=== PATIENT | female | born 1960 | race Caucasian/White ===

== ENCOUNTER → 2017-10-09 10:12 | Outpatient (CLI) | payer MEDICAID, SELFPAY ==
[2017-10-09 11:39] LABS: Absolute Lymphocyte Count 1.27 X10^3/ul (0.83-4.51); Absolute Neutrophil Count 3.9 X10^3/uL (2.0-7.7); Basophil# 0.03 X10^3/uL; Basophil% 0.5 % (0-1); Eosinophil# 0.16 X10^3/uL; Eosinophils% 2.7 % (0-5); Hematocrit 42.8 % (37-47); Hemoglobin 14.1 g/dl (12.0-15.0); Lymphocyte # 1.27 X10^3/ul (4.0); Lymphocyte % 21.6 % (19-41); Mean Corp Hgb Conc 32.9 g/gl (32-36); Mean Corpuscular Hgb 31.2 pg (27.0-32.0); Mean Corpuscular Volume 94.7 fL (81-99); Monocyte# 0.52 X10^3/uL; Monocyte% 8.8 % (0-10); Neutrophil # 3.89 X10^3/uL (2.7-7.7); Neutrophil % 66.2 % (47-70); Platelet Count 274 K/mm3 (150-450); RBC Distribution Width CV 12.9 % (11.6-14.6); RBC Distribution Width SD 44.5 fl (35.1-43.9); Red Blood Count 4.52 M/mm3 (4.2-5.4); White Blood Count 5.9 K/mm3 (4.4-11.0)
[2017-10-09 11:48] LABS: POSITIVE COUNT NO; POSITIVE DIFFERENTIAL NO; POSITIVE MORPHOLOGY NO
[2017-10-09 12:12] LABS: ALB/GLOB Ratio 0.9 RATIO (0.9-2.4); AST(SGOT) 30 U/L (15-37); Alanine Aminotransfer ALT/SGPT 38 U/L (13-56); Albumin, Serum 3.6 g/dL (3.2-5.0); Alkaline Phosphatase 65 U/L (45-117); Anion Gap 5 (5-15); BUN 13 mg/dL (7-18); BUN/Creat Ratio 16.5 RATIO (10-20); Calcium,Total 8.7 mg/dL (8.5-10.1); Chloride 111 mmol/L (98-107); Creatinine, Serum 0.79 mg/dL (0.55-1.02); EST Glomerular Filtration Rate 79 mL/min (>60); Est Glom Filt Rate - Afr Amer 96 mL/min (>60); Glucose 100 mg/dL (74-106); Iron 120 ug/dL (50-170); Magnesium 2.1 mg/dL (1.6-2.6); Protein, Total 7.6 g/dL (6.4-8.2); Sodium Level 142 mmol/L (136-145); T4 Free Direct 1.23 ng/dL (0.76-1.46); Thyroid Stim Hormone (TSH) 0.27 uIU/mL (0.358-3.74)
[2017-10-09 12:14] LABS: Vitamin B12 705 pg/mL (211-911); Vitamin D,25 Hydroxy 32.1 ng/mL (29.95-100.01)
[2017-10-09 12:21] LABS: Hemoglobin A1c 5.6 % (4.2-6.3)
== END ==
PROVIDERS: Visit Provider Nurse Practitioner
DX: E03.9 Hypothyroidism, unspecified (principal); R53.81 Other malaise; R53.83 Other fatigue; I10 Essential (primary) hypertension; E55.9 Vitamin D deficiency, unspecified; R87.619 Unspecified abnormal cytological findings in specimens from cervix uteri; Z86.39 Personal history of other endocrine, nutritional and metabolic disease; Z86.2 Personal history of diseases of the blood and blood-forming organs and certain disorders involving the immune mechanism
CPT/HCPCS: 36415; 80053; 82306; 82607; 83036; 83540; 83735; 84439; 84443; 85025

== ENCOUNTER → 2017-11-30 14:36 | Outpatient (CLI) | payer MEDICAID, SELFPAY ==
[2017-11-30 14:42] LABS: Mucous, Urine 0 SEEN /hpf (<or=2+); Red Blood Cells-Urine 0 SEEN /hpf (0-5); Squamous Epithelial Cells - UA 0 SEEN /hpf (5-10)
[2017-11-30 14:47] LABS: Color, Urine Yellow (Yellow); Glucose, Dipstick Normal (Normal); Ketone-Dipstick Negative (Negative); Leukocyte Esterase-Dipstick 500 /ul (Negative); Nitrite-Dipstick Negative (Negative); Occult Blood-Urine 25 /ul (Negative); Protein-Dipstick 15 mg/dl (Negative); Urine Bilirubin Dipstick Negative (Negative); Urine Clarity Clear (Clear); Urine Urobilinogen Normal (Normal)
[2017-11-30 15:02] LABS: Bacteria 1+ /hpf (None Seen); White Blood Cells >100 SEEN /hpf (0-5)
== END ==
PROVIDERS: Physician Assistant; Visit Provider Physician Assistant
DX: R35.0 Frequency of micturition (principal)
CPT/HCPCS: 81001; 87077; 87086; 87088; 87186

== ENCOUNTER → 2018-01-06 13:43 | Outpatient (CLI) | payer OTHER, SELFPAY ==
[2018-01-06 15:10] LABS: Free T3 2.6 pg/mL (2.18-3.98); T4 Free Direct 1.01 ng/dL (0.76-1.46); Thyroid Stim Hormone (TSH) 1.52 uIU/mL (0.358-3.74)
== END ==
PROVIDERS: Referring Provider Nurse Practitioner; Visit Provider Nurse Practitioner
DX: E03.9 Hypothyroidism, unspecified (principal)
CPT/HCPCS: 84439; 84443; 84481

== ENCOUNTER → 2018-10-01 14:47 | Outpatient (CLI) | payer OTHER, SELFPAY ==
[2018-10-01 13:56] VITALS: BMI 44.8
[2018-10-01 16:05] LABS: Absolute Lymphocyte Count 1.44 X10^3/ul (0.83-4.51); Absolute Neutrophil Count 4.8 X10^3/uL (2.0-7.7); Basophil# 0.05 X10^3/uL; Basophil% 0.7 % (0-1); Eosinophil# 0.18 X10^3/uL; Eosinophils% 2.5 % (0-5); Hematocrit 41.2 % (37-47); Hemoglobin 14.2 g/dl (12.0-15.0); Lymphocyte # 1.44 X10^3/ul (4.0); Lymphocyte % 20.2 % (19-41); Mean Corp Hgb Conc 34.5 g/gl (32-36); Mean Corpuscular Hgb 31.5 pg (27.0-32.0); Mean Corpuscular Volume 91.4 fL (81-99); Mean Platelet Vol. 10.3 fl (6.2-12.0); Monocyte# 0.61 X10^3/uL; Monocyte% 8.6 % (0-10); Neutrophil # 4.84 X10^3/uL (2.7-7.7); Neutrophil % 67.9 % (47-70); Platelet Count 255 K/mm3 (150-450); RBC Distribution Width CV 12.9 % (11.6-14.6); RBC Distribution Width SD 42.6 fl (35.1-43.9); Red Blood Count 4.51 M/mm3 (4.2-5.4); White Blood Count 7.1 K/mm3 (4.4-11.0)
[2018-10-01 16:10] LABS: POSITIVE COUNT NO; POSITIVE DIFFERENTIAL NO; POSITIVE MORPHOLOGY NO
[2018-10-01 16:31] LABS: AST(SGOT) 21 U/L (15-37); Alanine Aminotransfer ALT/SGPT 34 U/L (13-56); Albumin, Serum 3.8 g/dL (3.2-5.0); Alkaline Phosphatase 71 U/L (45-117); Anion Gap 9 (5-15); BUN 15 mg/dL (7-18); Chloride 109 mmol/L (98-107); Cholesterol 183 mg/dL (200); Creatinine, Serum 0.79 mg/dL (0.55-1.02); EST Glomerular Filtration Rate 79 mL/min (>60); Est Glom Filt Rate - Afr Amer 96 mL/min (>60); Globulin 3.7 g/dL (2.2-4.2); Glucose 80 mg/dL (74-106); Hemoglobin A1c 5.5 % (4.2-6.3); High Density Lipoprotein 51 mg/dL; Potassium 3.6 mmol/L (3.5-5.1); Protein, Total 7.5 g/dL (6.4-8.2); Sodium Level 143 mmol/L (136-145); Thyroid Stim Hormone (TSH) 1.65 uIU/mL (0.358-3.74); Triglycerides 115 mg/dL; Very Low Density Lipoprotein 23 mg/dL (5-40)
== END ==
PROVIDERS: PCP Internal Medicine; Referring Provider Internal Medicine; Visit Provider Internal Medicine
DX: E03.9 Hypothyroidism, unspecified (principal); D64.9 Anemia, unspecified; E66.01 Morbid (severe) obesity due to excess calories; Z68.41 Body mass index [BMI] 40.0-44.9, adult
CPT/HCPCS: 36415; 80053; 80061; 83036; 84443; 85025

== ENCOUNTER → 2019-01-26 13:00 | Outpatient (CLI) | payer OTHER, SELFPAY ==
[2019-01-26 13:40] VITALS: BMI 44.2
[2019-01-27 11:21] LABS: Bacteria 0 SEEN /hpf (None Seen); Mucous, Urine 0 SEEN /hpf (<or=2+); Red Blood Cells-Urine 0 SEEN /hpf (0-5)
[2019-01-27 14:36] LABS: Color, Urine Yellow (Yellow); Glucose, Dipstick Normal (Normal); Ketone-Dipstick Negative (Negative); Leukocyte Esterase-Dipstick 500 /ul (Negative); Nitrite-Dipstick Negative (Negative); Occult Blood-Urine Negative /ul (Negative); Protein-Dipstick Negative (Negative); Specific Gravity, Urine 1.015 (1.002-1.030); Urine Bilirubin Dipstick Negative (Negative); Urine Clarity Sl. Cloudy (Clear); Urine Urobilinogen Normal (Normal)
[2019-01-27 14:45] LABS: Squamous Epithelial Cells - UA 0-5 SEEN /hpf (5-10); White Blood Cells 5-10 SEEN /hpf (0-5)
== END ==
PROVIDERS: PCP Internal Medicine; Visit Provider Internal Medicine
DX: N39.0 Urinary tract infection, site not specified (principal)
CPT/HCPCS: 81001; 87086; 87088

== ENCOUNTER → 2019-03-11 13:59 | Outpatient (CLI) | payer OTHER, SELFPAY ==
[2019-03-11 13:13] VITALS: BMI 43.9
[2019-03-11 16:31] LABS: Ferritin 159 ng/mL (8-252); Iron 126 ug/dL (50-170); Iron Binding Capacity,Total 331 ug/dL (250-450); Thyroid Stim Hormone (TSH) 0.79 uIU/mL (0.358-3.74)
[2019-03-15 20:20] LABS: Transferrin 275 mg/dL (200-370)
== END ==
PROVIDERS: Family Provider Internal Medicine; PCP Internal Medicine; Referring Provider Internal Medicine; Visit Provider Internal Medicine
DX: E83.110 Hereditary hemochromatosis (principal); E03.9 Hypothyroidism, unspecified
CPT/HCPCS: 36415; 82728; 83540; 83550; 84443; 84466

== ENCOUNTER → 2019-03-26 12:32 | Outpatient (CLI) | payer OTHER, SELFPAY ==
[2019-03-26 11:14] VITALS: BMI 43.9
[2019-03-26 12:44] LABS: Bacteria 0 SEEN /hpf (None Seen); Mucous, Urine 0 SEEN /hpf (<or=2+); Red Blood Cells-Urine 0 SEEN /hpf (0-5)
[2019-03-26 13:12] LABS: Color, Urine Yellow (Yellow); Glucose, Dipstick Normal (Normal); Ketone-Dipstick Negative (Negative); Leukocyte Esterase-Dipstick 25 /ul (Negative); Nitrite-Dipstick Negative (Negative); Occult Blood-Urine Negative /ul (Negative); Protein-Dipstick Negative (Negative); Specific Gravity, Urine 1.015 (1.002-1.030); Urine Bilirubin Dipstick Negative (Negative); Urine Clarity Clear (Clear); Urine Urobilinogen Normal (Normal)
[2019-03-26 13:54] LABS: Squamous Epithelial Cells - UA 0-5 SEEN /hpf (5-10); White Blood Cells 0-5 SEEN /hpf (0-5)
== END ==
PROVIDERS: Family Provider Internal Medicine; PCP Internal Medicine; Referring Provider Internal Medicine; Visit Provider Internal Medicine
DX: N39.0 Urinary tract infection, site not specified (principal)
CPT/HCPCS: 81001; 87086; 87088

== ENCOUNTER → 2019-04-30 10:44 | Outpatient (CLI) | payer OTHER, SELFPAY ==
[2019-04-29 16:21] VITALS: BMI 43.9
[2019-04-30 11:58] LABS: Anion Gap 3 (5-15); BUN 14 mg/dL (7-18); BUN/Creat Ratio 16.1 RATIO (10-20); Calcium,Total 9.3 mg/dL (8.5-10.1); Chloride 111 mmol/L (98-107); Creatinine, Serum 0.87 mg/dL (0.55-1.02); EST Glomerular Filtration Rate 71 mL/min (>60); Est Glom Filt Rate - Afr Amer 86 mL/min (>60); Glucose 93 mg/dL (74-106); Sodium Level 143 mmol/L (136-145)
[2019-04-30 12:02] LABS: Vitamin D,25 Hydroxy 23.1 ng/mL (29.95-100.01)
== END ==
LOC: LAB 10:46
PROVIDERS: PCP Internal Medicine; Referring Provider Internal Medicine; Visit Provider Internal Medicine
DX: I10 Essential (primary) hypertension (principal); E55.9 Vitamin D deficiency, unspecified
CPT/HCPCS: 36415; 80048; 82306

== ENCOUNTER → 2019-05-10 | Outpatient (CLI) | payer OTHER, SELFPAY ==
[2019-05-10 09:55] VITALS: BMI 43.9
[2019-05-13 20:52] LABS: HPV Reflexed? NOT INDICATED
== END | disposition home or self-care (01) ==
LOC: LABSPEC 17:04
PROVIDERS: PCP Internal Medicine; Referring Provider Obstetrics & Gynecology; Visit Provider Obstetrics & Gynecology
DX: Z12.4 Encounter for screening for malignant neoplasm of cervix (principal)
CPT/HCPCS: 88175; G0145

== ENCOUNTER → 2019-05-11 13:16 | Outpatient (CLI) | payer OTHER, SELFPAY ==
[2019-01-26 13:40] VITALS: BMI 44.2
[2019-05-10 09:55] VITALS: BMI 43.9
--- NOTE | 2019-05-11 13:17 | BI_ITS ---
MAMMOGRAPHY - BILATERAL SCREENING REASON FOR EXAM: Female, 59 years old. Routine annual screening examination. PERTINENT HISTORY: Aunt with breast cancer. TECHNIQUE: Digital bilateral breast ciera (3D mammographic acquisition) in the CC and MLO projections. 2-D mediolateral oblique (MLO) and craniocaudad (CC) views of both breasts were obtained. CAD: Full Field Digital Mammography with Computer Added Detection was performed. COMPARISON: Comparison is made with prior outside examination dated November 24, 2015. FINDINGS: Breast Composition: The breasts are almost entirely fatty. There are no dominant masses or suspicious calcifications. Stable benign-appearing bilateral axillary lymph nodes. No other significant abnormalities are identified. There has been no significant change since the prior study. BI/SCREEN MAMM (CAD) W/CIERA BILAT IMPRESSION: Stable bilateral screening mammogram. Yearly follow-up mammogram recommended. (A) ASSESSMENT CATEGORY: BIRADS Category 2: Benign. A letter regarding these results will be sent to the patient by the facility within 30 days. Approximately 10% of breast cancers are not detected by mammography. A normal mammogram should not delay biopsy of a clinically suspicious abnormality. [id number] Electronically Signed: Sanju Lizama, at 15:32 EST , Service support ,
== END ==
PROVIDERS: PCP Internal Medicine; Referring Provider Internal Medicine; Visit Provider Internal Medicine
DX: Z12.31 Encounter for screening mammogram for malignant neoplasm of breast (principal)
CPT/HCPCS: 77063; 77067

== ENCOUNTER → 2020-01-05 15:10 | Outpatient (CLI) | payer OTHER, SELFPAY ==
[2020-01-05 14:28] VITALS: BMI 43.9
[2020-01-05 15:13] LABS: Mucous, Urine 0 SEEN /hpf (<or=2+); Red Blood Cells-Urine 0 SEEN /hpf (0-5)
[2020-01-05 16:55] LABS: Absolute Lymphocyte Count 1.71 X10^3/uL (0.83-4.51); Absolute Neutrophil Count 5.3 X10^3/uL (2.0-7.7); Basophil# 0.07 X10^3/uL; Basophil% 0.9 % (0-1); Eosinophil# 0.17 X10^3/uL; Eosinophils% 2.2 % (0-5); Hematocrit 43.6 % (37-47); Hemoglobin 14.6 g/dL (12.0-15.0); Lymphocyte # 1.71 X10^3/ul (4.0); Lymphocyte % 21.6 % (19-41); Mean Corp Hgb Conc 33.5 g/dL (32-36); Mean Corpuscular Hgb 31.9 pg (27.0-32.0); Mean Corpuscular Volume 95.2 fL (81-99); Mean Platelet Vol. 10.1 fl (6.2-12.0); Monocyte# 0.59 X10^3/uL; Monocyte% 7.5 % (0-10); NRBC Flagged by Analyzer 0 % (0-5); Neutrophil # 5.33 X10^3/uL (2.7-7.7); Neutrophil % 67.4 % (47-70); Platelet Count 274 K/mm3 (150-450); RBC Distribution Width CV 12.4 % (11.6-14.6); RBC Distribution Width SD 42.9 fl (35.1-43.9); Red Blood Count 4.58 M/mm3 (4.2-5.4); White Blood Count 7.9 K/mm3 (4.4-11.0)
[2020-01-05 17:08] LABS: Color, Urine Yellow (Yellow); Glucose, Dipstick Normal (Normal); Ketone-Dipstick Negative (Negative); Leukocyte Esterase-Dipstick 100 /ul (Negative); Nitrite-Dipstick Negative (Negative); Occult Blood-Urine Negative /ul (Negative); Protein-Dipstick Negative (Negative); Urine Bilirubin Dipstick Negative (Negative); Urine Clarity Clear (Clear); Urine Urobilinogen Normal (Normal)
[2020-01-05 17:13] LABS: Vitamin D,25 Hydroxy 65.7 ng/mL
[2020-01-05 17:16] LABS: Bacteria RARE /hpf (None Seen); Squamous Epithelial Cells - UA 0-5 SEEN /hpf (5-10); White Blood Cells 5-10 SEEN /hpf (0-5)
[2020-01-05 17:26] LABS: AST(SGOT) 50 U/L (15-37); Alanine Aminotransfer ALT/SGPT 59 U/L (13-56); Albumin, Serum 3.8 g/dL (3.2-5.0); Alkaline Phosphatase 68 U/L (45-117); Anion Gap 5 (5-15); BUN 15 mg/dL (7-18); BUN/Creat Ratio 19.1 RATIO (10-20); Calcium,Total 9.2 mg/dL (8.5-10.1); Chloride 105 mmol/L (98-107); Cholesterol 190 mg/dL (200); Creatinine, Serum 0.78 mg/dL (0.55-1.02); EST Glomerular Filtration Rate 79 mL/min (>60); Est Glom Filt Rate - Afr Amer 96 mL/min (>60); Glucose 84 mg/dL (74-106); High Density Lipoprotein 49 mg/dL; Protein, Total 7.8 g/dL (6.4-8.2); Sodium Level 137 mmol/L (136-145); Thyroid Stim Hormone (TSH) 1.62 uIU/mL (0.358-3.74); Triglycerides 181 mg/dL; Very Low Density Lipoprotein 36 mg/dL (5-40)
== END ==
PROVIDERS: PCP Internal Medicine; Referring Provider Internal Medicine; Visit Provider Internal Medicine
DX: I10 Essential (primary) hypertension (principal); K21.9 Gastro-esophageal reflux disease without esophagitis; E03.9 Hypothyroidism, unspecified; R35.0 Frequency of micturition; E55.9 Vitamin D deficiency, unspecified
CPT/HCPCS: 36415; 80053; 80061; 81001; 82306; 84443; 85025; 87086; 87088

== ENCOUNTER → 2021-02-02 11:03 | Outpatient (CLI) | payer OTHER, SELFPAY ==
[2021-02-02 11:59] LABS: Absolute Lymphocyte Count 1.92 X10^3/uL (0.83-4.51); Absolute Neutrophil Count 3.9 X10^3/uL (2.0-7.7); Basophil% 1.5 % (0-1); Hematocrit 43.8 % (37-47); Hemoglobin 14.9 g/dL (12.0-15.0); Lymphocyte # 1.92 X10^3/ul (0.83-4.51); Lymphocyte % 28.6 % (19-41); Mean Corpuscular Hgb 31.8 pg (27.0-32.0); Mean Corpuscular Volume 93.6 fL (81-99); Mean Platelet Vol. 9.9 fl (6.2-12.0); Monocyte# 0.53 X10^3/uL; Monocyte% 7.9 % (0-10); NRBC Flagged by Analyzer 0 % (0-5); Neutrophil # 3.93 X10^3/uL (2.7-7.7); Neutrophil % 58.6 % (47-70); Platelet Count 287 K/mm3 (150-450); RBC Distribution Width CV 12.5 % (11.6-14.6); Red Blood Count 4.68 M/mm3 (4.2-5.4); White Blood Count 6.7 K/mm3 (4.4-11.0)
[2021-02-02 12:22] LABS: Vitamin D,25 Hydroxy 69.9 ng/mL
[2021-02-02 12:37] LABS: ALB/GLOB Ratio 0.8 RATIO (0.9-2.4); AST(SGOT) 48 U/L (15-37); Alanine Aminotransfer ALT/SGPT 58 U/L (13-56); Albumin, Serum 3.4 g/dL (3.2-5.0); Alkaline Phosphatase 78 U/L (45-117); Anion Gap 7 (5-15); BUN 12 mg/dL (7-18); BUN/Creat Ratio 13.9 RATIO (10-20); Calcium,Total 9.2 mg/dL (8.5-10.1); Chloride 109 mmol/L (98-107); Cholesterol 187 mg/dL (200); Creatinine, Serum 0.87 mg/dL (0.55-1.02); EST Glomerular Filtration Rate 71 mL/min (>60); Est Glom Filt Rate - Afr Amer 85 mL/min (>60); Globulin 4.2 g/dL (2.2-4.2); Glucose 113 mg/dL (74-106); High Density Lipoprotein 47 mg/dL; Potassium 4.1 mmol/L (3.5-5.1); Protein, Total 7.6 g/dL (6.4-8.2); Sodium Level 141 mmol/L (136-145); Thyroid Stim Hormone (TSH) 0.94 uIU/mL (0.358-3.74); Triglycerides 139 mg/dL; Very Low Density Lipoprotein 28 mg/dL (5-40)
== END ==
PROVIDERS: PCP Internal Medicine; Referring Provider Internal Medicine; Visit Provider Internal Medicine
DX: I10 Essential (primary) hypertension (principal); E03.9 Hypothyroidism, unspecified; E55.9 Vitamin D deficiency, unspecified; R73.9 Hyperglycemia, unspecified
CPT/HCPCS: 36415; 80053; 80061; 82306; 83036; 84443; 85025

== ENCOUNTER 2021-04-13 15:59 | Outpatient (CLI) | payer OTHER, SELFPAY ==
[2021-04-13 16:01] LABS: Bacteria 0 SEEN /hpf (None Seen); Mucous, Urine 0 SEEN /hpf (<or=2+); Red Blood Cells-Urine 0 SEEN /hpf (0-5)
[2021-04-13 16:53] LABS: Color, Urine Yellow (Yellow); Glucose, Dipstick Normal (Normal); Ketone-Dipstick Negative (Negative); Leukocyte Esterase-Dipstick 100 /ul (Negative); Nitrite-Dipstick Negative (Negative); Occult Blood-Urine Negative /ul (Negative); Protein-Dipstick Negative (Negative); Specific Gravity, Urine 1.025 (1.002-1.030); Urine Bilirubin Dipstick Negative (Negative); Urine Clarity Sl. Cloudy (Clear); Urine Urobilinogen Normal (Normal)
[2021-04-13 17:22] LABS: Squamous Epithelial Cells - UA 0-5 SEEN /hpf (5-10); Transitional Epithelial - Ur 0-5 SEEN /hpf (0-5); White Blood Cells 5-10 SEEN /hpf (0-5)
== END 2021-04-13 23:59 | disposition short-term general hospital (02) ==
LOC: LABSPEC 16:00
PROVIDERS: PCP Internal Medicine; Referring Provider Nurse Practitioner Family; Visit Provider Nurse Practitioner Family
DX: R10.2 Pelvic and perineal pain (principal)
CPT/HCPCS: 81001; 87086; 87088

== ENCOUNTER → 2022-04-19 | Outpatient (CLI) | payer MEDICAID, SELFPAY ==
[2022-04-19 10:06] LABS: Hematocrit 43.5 % (37-47); Hemoglobin 14.8 g/dL (12.0-15.0); Mean Corpuscular Hgb 31.8 pg (27.0-32.0); Mean Corpuscular Volume 93.3 fL (81-99); RBC Distribution Width CV 12.5 % (11.6-14.6); Red Blood Count 4.66 M/mm3 (4.2-5.4); White Blood Count 7.5 K/mm3 (4.4-11.0)
[2022-04-19 10:07] LABS: Absolute Lymphocyte Count 2.01 X10^3/uL (0.83-4.51); Absolute Neutrophil Count 4.6 X10^3/uL (2.0-7.7); Basophil# 0.09 X10^3/uL; Basophil% 1.2 % (0-1); Eosinophil# 0.26 X10^3/uL; Eosinophils% 3.5 % (0-5); Lymphocyte # 2.01 X10^3/ul (0.83-4.51); Lymphocyte % 26.8 % (19-41); Mean Platelet Vol. 9.8 fl (6.2-12.0); Monocyte# 0.53 X10^3/uL; Monocyte% 7.1 % (0-10); NRBC Flagged by Analyzer 0 % (0-5); Neutrophil # 4.58 X10^3/uL (2.7-7.7); Neutrophil % 60.9 % (47-70); Platelet Count 229 K/mm3 (150-450); RBC Distribution Width SD 42.6 fl (35.1-43.9)
[2022-04-19 10:25] LABS: Vitamin D,25 Hydroxy 70.2 ng/mL
[2022-04-19 10:33] LABS: ALB/GLOB Ratio 0.8 RATIO (0.9-2.4); AST(SGOT) 49 U/L (15-37); Alanine Aminotransfer ALT/SGPT 56 U/L (13-56); Albumin, Serum 3.4 g/dL (3.2-5.0); Alkaline Phosphatase 75 U/L (45-117); Anion Gap 7 (5-15); BUN 14 mg/dL (7-18); Calcium,Total 9.7 mg/dL (8.5-10.1); Chloride 105 mmol/L (98-107); Cholesterol 205 mg/dL (200); Creatinine, Serum 0.87 mg/dL (0.55-1.02); EST Glomerular Filtration Rate 70 mL/min (>60); Est Glom Filt Rate - Afr Amer 84 mL/min (>60); Globulin 4.1 g/dL (2.2-4.2); Glucose 152 mg/dL (74-106); High Density Lipoprotein 46 mg/dL; Protein, Total 7.5 g/dL (6.4-8.2); Sodium Level 139 mmol/L (136-145); Triglycerides 168 mg/dL; Very Low Density Lipoprotein 34 mg/dL (5-40)
== END | disposition home or self-care (01) ==
LOC: LAB 09:40
PROVIDERS: PCP Internal Medicine; Referring Provider Physician Assistant; Visit Provider Physician Assistant
DX: I10 Essential (primary) hypertension (principal); E03.9 Hypothyroidism, unspecified; E55.9 Vitamin D deficiency, unspecified; R73.9 Hyperglycemia, unspecified
CPT/HCPCS: 36415; 80053; 80061; 82306; 84443; 85025

== ENCOUNTER → 2022-07-24 | Outpatient (CLI) | payer MEDICAID, SELFPAY ==
--- NOTE | 2022-07-24 14:40 | BI_ITS ---
MAMMOGRAPHY - BILATERAL SCREENING REASON FOR EXAM: Female, 62 years old. Routine annual screening examination. PERTINENT HISTORY: Aunt with breast cancer. TECHNIQUE: Digital bilateral breast ciera (3D mammographic acquisition) in the CC and MLO projections. 2-D mediolateral oblique (MLO) and craniocaudad (CC) views of both breasts were obtained. CAD: Full Field Digital Mammography with Computer Added Detection was performed. COMPARISON: Comparison is made with prior study dated May 11, 2019. FINDINGS: Breast Composition: The breasts are almost entirely fatty. There are no dominant masses or suspicious calcifications. Stable small benign-appearing bilateral axillary lymph nodes. No other significant abnormalities are identified. There has been no significant change since the prior study. BI/SCRN MAMM (CAD)W/CIERA BILAT IMPRESSION: Stable bilateral screening mammogram. Yearly follow-up mammogram recommended. (A) ASSESSMENT CATEGORY: BIRADS Category 2: Benign. A letter regarding these results will be sent to the patient by the facility within 30 days. Approximately 10% of breast cancers are not detected by mammography. A normal mammogram should not delay biopsy of a clinically suspicious abnormality. [id number] Electronically Signed: Sanju Lizama MD at 15:23 EDT ,
[2022-08-01 10:08] LABS: HPV APTIMA, High Risk Negative (Negative)
== END | disposition home or self-care (01) ==
PROVIDERS: PCP Internal Medicine; Referring Provider Nurse Practitioner Women's Health; Visit Provider Nurse Practitioner Women's Health
DX: Z12.31 Encounter for screening mammogram for malignant neoplasm of breast (principal)
CPT/HCPCS: 77063; 77067; 87624; 88175; G0145

== ENCOUNTER → 2023-06-27 | Outpatient (CLI) | payer MEDICAID, SELFPAY ==
[2023-06-27 11:59] LABS: Absolute Lymphocyte Count 1.24 X10^3/uL (0.83-4.51); Basophil# 0.05 X10^3/uL; Basophil% 0.7 % (0-1); Eosinophils% 2.8 % (0-5); Hematocrit 47.8 % (37-47); Hemoglobin 16.2 g/dL (12.0-15.0); Lymphocyte # 1.24 X10^3/ul (0.83-4.51); Lymphocyte % 17.2 % (19-41); Mean Corp Hgb Conc 33.9 g/dL (32-36); Mean Corpuscular Hgb 31.8 pg (27.0-32.0); Mean Corpuscular Volume 93.9 fL (81-99); Monocyte# 0.75 X10^3/uL; Monocyte% 10.4 % (0-10); NRBC Flagged by Analyzer 0 % (0-5); Neutrophil # 4.95 X10^3/uL (2.7-7.7); Neutrophil % 68.6 % (47-70); Platelet Count 272 K/mm3 (150-450); RBC Distribution Width CV 13.1 % (11.6-14.6); RBC Distribution Width SD 45.4 fl (35.1-43.9); Red Blood Count 5.09 M/mm3 (4.2-5.4); White Blood Count 7.2 K/mm3 (4.4-11.0)
[2023-06-27 12:25] LABS: Vitamin D,25 Hydroxy 73.8 ng/mL
[2023-06-27 12:40] LABS: Ferritin 339 ng/mL (8-252); Iron 93 ug/dL (50-170); Iron Binding Capacity,Total 359 ug/dL (250-450); Magnesium 2.3 mg/dL (1.6-2.6)
[2023-06-27 12:53] LABS: ALB/GLOB Ratio 0.8 RATIO (0.9-2.4); AST(SGOT) 36 U/L (15-37); Alanine Aminotransfer ALT/SGPT 41 U/L (13-56); Albumin, Serum 3.6 g/dL (3.2-5.0); Alkaline Phosphatase 80 U/L (45-117); Anion Gap 9 (5-15); BUN 19 mg/dL (7-18); BUN/Creat Ratio 18.6 RATIO (10-20); Calcium,Total 9.3 mg/dL (8.5-10.1); Chloride 110 mmol/L (98-107); Cholesterol 186 mg/dL (200); Creatinine, Serum 1.02 mg/dL (0.55-1.02); EST Glomerular Filtration Rate 58 mL/min (>60); Est Glom Filt Rate - Afr Amer 70 mL/min (>60); Globulin 4.4 g/dL (2.2-4.2); Glucose 136 mg/dL (74-106); High Density Lipoprotein 44 mg/dL; Potassium 3.8 mmol/L (3.5-5.1); Sodium Level 141 mmol/L (136-145); Thyroid Stim Hormone (TSH) 6.23 uIU/mL (0.358-3.74); Triglycerides 141 mg/dL; Very Low Density Lipoprotein 28 mg/dL (5-40)
== END | disposition home or self-care (01) ==
LOC: BIMLAB 11:02
PROVIDERS: PCP Internal Medicine; Referring Provider Nurse Practitioner; Visit Provider Nurse Practitioner
DX: I10 Essential (primary) hypertension (principal); E03.9 Hypothyroidism, unspecified; G25.81 Restless legs syndrome; E55.9 Vitamin D deficiency, unspecified; R73.03 Prediabetes
CPT/HCPCS: 36415; 80053; 80061; 82306; 82728; 83036; 83540; 83550; 83735; 84443; 85025

== ENCOUNTER → 2023-09-09 | Outpatient (CLI) | payer MEDICAID, SELFPAY ==
[2023-09-09 16:32] LABS: Thyroid Stim Hormone (TSH) 0.41 uIU/mL (0.358-3.74)
[2023-09-10 18:23] LABS: Anion Gap 7 (5-15); BUN 13 mg/dL (7-18); BUN/Creat Ratio 19.8 RATIO (10-20); Calcium,Total 9.5 mg/dL (8.5-10.1); Chloride 107 mmol/L (98-107); Creatinine, Serum 0.66 mg/dL (0.55-1.02); EST Glomerular Filtration Rate 96 mL/min (>60); Est Glom Filt Rate - Afr Amer 116 mL/min (>60); Glucose 95 mg/dL (74-106); Sodium Level 140 mmol/L (136-145)
== END | disposition home or self-care (01) ==
LOC: BIMLAB 13:29
PROVIDERS: PCP Internal Medicine; Referring Provider Internal Medicine; Visit Provider Internal Medicine
DX: E03.9 Hypothyroidism, unspecified (principal)
CPT/HCPCS: 36415; 80048; 84443

== ENCOUNTER 2023-11-16 20:10 | Emergency (ER) | payer MEDICAID, SELFPAY ==
[2023-11-16 20:10] VITALS: BP 174/103; PULSE 114; RESP 18; TEMP 36.3; O2SAT 97; BMI 40.8
--- NOTE | 2023-11-16 20:50 | EKG12_ITS ---
Test Reason : HTN Blood Pressure : / mmHG Vent. Rate : 093 BPM Atrial Rate : 093 BPM P-R Int : 118 ms QRS Dur : 080 ms QT Int : 388 ms P-R-T Axes : 000 160 129 degrees QTc Int : 482 ms Suspect arm lead reversal, interpretation assumes no reversal Sinus rhythm with Premature ventricular complexes or Fusion complexes Anterolateral infarct (cited on or before 04-JUN-2012) Abnormal ECG Confirmed by ZACH CAMARA, JOCELINE ([id number]), visual effects editor MARTINA FARR ([id number]) on 11/17/2023 9:47:24 AM Referred By: Confirmed By:JOCELINE SERRANO MD
[2023-11-16] MEDS: 0.9% Normal Saline (1000mL) 1,000 ML 1000 ML IV (20:55)
--- NOTE | 2023-11-16 21:00 | RAD_ITS ---
INDICATION: hypertension EXAMINATION/TECHNIQUE: X-RAY - XR Chest 2 Views COMPARISON: CT abdomen and pelvis 06/02/2008 FINDINGS: LINES/DEVICES: None. LUNGS: No consolidation, edema or effusion. No pneumothorax. MEDIASTINUM AND CARDIOVASCULAR STRUCTURES: Cardiac silhouette not enlarged. Situs inversus corresponding with the earlier CT findings. BONES AND SOFT TISSUES: Unremarkable. RAD/Chest PA and Lateral IMPRESSION: No radiographic evidence of acute cardiopulmonary disease. Situs inversus. Electronically Signed: Enrrique Fernandes MD at 21:24 EDT ,
[2023-11-16 21:16] LABS: Absolute Lymphocyte Count 2.09 X10^3/uL (0.83-4.51); Absolute Neutrophil Count 5.3 X10^3/uL (2.0-7.7); Basophil# 0.07 X10^3/uL; Basophil% 0.8 % (0-1); Eosinophil# 0.23 X10^3/uL; Eosinophils% 2.7 % (0-5); Hematocrit 41.6 % (37-47); Hemoglobin 14.3 g/dL (12.0-15.0); Lymphocyte # 2.09 X10^3/ul (0.83-4.51); Lymphocyte % 24.6 % (19-41); Mean Corp Hgb Conc 34.4 g/dL (32-36); Mean Corpuscular Hgb 31.6 pg (27.0-32.0); Mean Platelet Vol. 10.7 fl (6.2-12.0); Monocyte# 0.77 X10^3/uL; Monocyte% 9.1 % (0-10); NRBC Flagged by Analyzer 0 % (0-5); Neutrophil # 5.29 X10^3/uL (2.7-7.7); Neutrophil % 62.4 % (47-70); Platelet Count 220 K/mm3 (150-450); RBC Distribution Width CV 12.5 % (11.6-14.6); RBC Distribution Width SD 42.5 fl (35.1-43.9); Red Blood Count 4.52 M/mm3 (4.2-5.4); White Blood Count 8.5 K/mm3 (4.4-11.0)
[2023-11-16 21:37] LABS: Anion Gap 6 (5-15); BUN 13 mg/dL (7-18); BUN/Creat Ratio 13.9 RATIO (10-20); Calcium,Total 9.4 mg/dL (8.5-10.1); Chloride 109 mmol/L (98-107); Creatinine, Serum 0.94 mg/dL (0.55-1.02); EST Glomerular Filtration Rate 64 mL/min (>60); Est Glom Filt Rate - Afr Amer 77 mL/min (>60); Estimated Creatinine Clearance 69.98 ml/min; Glucose 189 mg/dL (74-106); Potassium 3.5 mmol/L (3.5-5.1); Sodium Level 143 mmol/L (136-145); Thyroid Stim Hormone (TSH) 2.46 uIU/mL (0.358-3.74)
[2023-11-16 21:45] VITALS: BP 171/89; O2SAT 96
--- NOTE | 2023-11-16 22:10 | EX.ED.DYSGE1 ---
HPI History of Present Illness Chief Complaint: Hypertension Informant: patient Narrative Narrative: Patient is 63-year-old female with history of GERD, borderline type 2 diabetes mellitus, hypothyroid (on Synthroid) and hypertension presenting for flushing of her face and elevated blood pressure. Patient states she ate dinner tonight and afterwards felt that her face was flushed. This triggered check her blood pressure. At 7:30 PM it was 162/84. The highest weight was 174 systolic. Patient was concerned and came to the emergency room for further evaluation. She denies any symptom such as chest pain, shortness of breath, difficulty breathing, leg swelling, headache or vision changes. She notes that her PCP recently increased her Synthroid dose about a month ago and since then she has had some sensation of feeling of her heart is racing at night and sweating a lot. She states her TSH was 0.41 on 09/08. Patient did take her blood pressure medicine today which is enalapril 30 mg as well as HCTZ 12.5 mg. Denies any recent medication changes. She states her normal blood pressure is normally around 120/80. No other complaints or concerns at this time. 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 [facility] Medical History Skin mole Borderline type 2 diabetes mellitus Flu vaccine need Hyperglycemia Vitamin D deficiency Colon cancer screening Puncture wound of left foot excluding toes without complication Hearing problem Seasonal allergies Vitamin deficiency GERD (gastroesophageal reflux disease) Kidney stones Cataracts, bilateral Recurrent UTI Knee pain Anemia Hemorrhoids Hypertension Home Medications ?Medication ?Instructions ?Recorded ?Last Taken ?Type cholecalciferol (vitamin D3) 50 2,000 unit PO DAILY 05/10/19 Unknown History mcg (2,000 unit) tablet loratadine 10 mg tablet (Claritin) 10 mg PO DAILY 07/24/22 Unknown History hydrochlorothiazide 12.5 mg tablet 12.5 mg PO QAM #90 tabs 09/23/23 Unknown Rx levothyroxine 125 mcg tablet 125 mcg PO DAILY #90 TABLETS 09/23/23 Unknown Rx enalapril maleate 10 mg tablet 30 mg PO DAILY 11/16/23 Unknown History Allergy/AdvReac Type Severity Reaction Status Date / Time No Known Allergies Allergy Verified 11/16/23 20:11 Family History Father Heart disease Hypertension Kidney stones Diabetes High cholesterol Mother Hypertension Grandmother Hypothyroid Son Hemochromatosis Surgical History History of repair of retinal tear by laser photocoagulation H/O colonoscopy History of D&C Social History Smoking Status: Never smoker alcohol intake: never substance use type: does not use caffeine: Yes what type of physical activity do you participate in: walking seatbelt use: always do you feel safe at home: Yes additional social history: - [employer] NOW ROS ROS ED Constitutional Constitutional ED: Reports other Details: flushed ; Denies chills or fever(s) Eyes Eyes: Denies blurry vision or change in vision Cardiovascular Cardiovascular: Denies chest pain or palpitations Respiratory/Chest Respiratory/Chest: Denies cough or dyspnea Gastrointestinal Gastrointestinal: Denies abdominal pain, nausea or vomiting Neurologic Neurologic: Denies headache(s) EXAM Physical Exam Const Vital Signs: 11/16/23 20:10 11/16/23 20:20 11/16/23 21:45 Temperature 97.4 F L Temperature Source Temporal Pulse Rate 114 H Respiratory Rate 18 Respiratory Effort Normal Respiratory Pattern Normal Blood Pressure 174/103 H 171/89 H Blood Pressure Mean 126 116 Pulse Ox 97 96 Oxygen Delivery Method Room Air Room Air 11/16/23 22:23 11/16/23 22:27 Temperature 97.8 F Temperature Source Pulse Rate 82 Respiratory Rate 16 Respiratory Effort Respiratory Pattern Blood Pressure 148/79 H 147/68 H Blood Pressure Mean 102 94 Pulse Ox 99 Oxygen Delivery Method Positive well nourished and well developed General Appearance ED: well developed Eyes Eyes Narrative: No exophthalmos Neck supple and no JVD Resp normal respiratory effort and clear to auscultation bilaterally Cardio regular rate, regular rhythm and no murmurs GI normal to inspection, nondistended, normoactive bowel sounds and non-distended Extremity normal to inspection General Extremety ED: Negative for edema General Extremity: Negative for edema Neuro oriented x3 Psych mental status grossly normal Mood & Affect: anxious Skin no rashes or lesions noted and no wounds MDM MDM MDM Narrative Medical decision making narrative: Patient evaluated for elevated blood pressure. Patient is mildly hypertensive the emergency room with blood pressure of 174/103. She is mildly tachycardic upon arrival. Patient is a little anxious. She is not having chest pain or signs of hypertensive emergency (difficulty breathing, signs of flash pulmonary edema, crackles/rales in her lungs as normal neurologic exam). I will check some basic blood work including CBC, BMP and TSH. This is all largely normal. Patient is monitored in the ER and blood pressure does stay bit elevated fluctuating between 160-170 systolic. Heart rate improves in the ER patient is given IV fluids. She did feel like she is little dehydrated did have a little bit of a dry mouth. On repeat evaluation she feels well. Is still hypertensive will be given 1 dose of labetalol. Discussed at this time I do not want to make any medication changes and she can follow-up with her PCP. Instructed to take a blood pressure log. Counseled that she is not having any chest pain, difficulty breathing or severe symptoms such as flash pulmonary edema, neurologic symptoms or other more traumatic process she can just keep a blood pressure log and follow-up with her primary care doctor. She will call tomorrow. I did discuss that if her blood pressure is elevated she could take an extra dose of hydrochlorothiazide she is only on 12.5 mg at this time. Prior to receiving the labetalol patient's blood pressure is now 140 systolic. Will cancel the order and discharge patient home with the above plan. Lab Data Attestation: I reviewed the patient's lab results. Labs: Laboratory Results - last 24 hr 11/16/23 20:45 WBC 8.5 RBC 4.52 Hgb 14.3 Hct 41.6 MCV 92.0 MCH 31.6 MCHC 34.4 RDW Std Deviation 42.5 RDW Coeff of Helen 12.5 Plt Count 220 MPV 10.7 Immature Gran % (Auto) 0.400 Neut % (Auto) 62.4 Lymph % (Auto) 24.6 Fisher % (Auto) 9.1 Eos % (Auto) 2.7 Baso % (Auto) 0.8 Absolute Neuts (auto) 5.3 Absolute Lymphs (auto) 2.09 Nucleated RBC % 0 Sodium 143 Potassium 3.5 Chloride 109 H Carbon Dioxide 28.0 Anion Gap 6 BUN 13 Creatinine 0.94 Estim Creat Clear Calc 69.98 Est GFR (MDRD) Af Amer 77 Est GFR (MDRD) Non-Af 64 BUN/Creatinine Ratio 13.9 Glucose 189 H Calcium 9.4 TSH 2.46 Radiography Diagnostic Testing: Clinical Impression(s) from Imaging Studies Chest X-Ray 11/16/23 21:00 IMPRESSION: No radiographic evidence of acute cardiopulmonary disease. Situs inversus. Electronically Signed: Enrrique Fernandes MD at 21:24 EDT Reading Location ID and State: [facility] / [place] Tel , Service support , Rhythm Strip Rhythm Strip: Sinus Rhythm Rate: 77 Ectopy: None EKG Initial EKG: Attestation: I personally reviewed and interpreted this EKG as follows: Interpretation: Sinus Rhythm Comments: Normal sinus rhythm rate of 77 bpm Right axis deviation Normal intervals Normal ST segments with nonspecific T wave changes Follow-up EKG: Comments: Right sided EKG initially obtained as patient has sinus inverted this. Show suspected limb lead reversal and no change compared to prior EKG on 06/04/2012 Sinus rhythm at a rate of 93 bpm Discharge Plan Triage Chief Complaint: Hypertension ED Provider: Celine Perry Dx/Rx/DC Orders Clinical Impression: Elevated blood pressure reading Instructions: ED Hypertension, Established Prescriptions: No Action cholecalciferol (vitamin D3) 2,000 unit tablet 2,000 unit PO DAILY loratadine [Claritin] 10 mg tablet 10 mg PO DAILY enalapril maleate 10 mg tablet 30 mg PO DAILY hydrochlorothiazide 12.5 mg tablet 12.5 mg PO QAM Qty: 90 1RF levothyroxine 125 mcg tablet 125 mcg PO DAILY Qty: 90 1RF Primary Care Provider: Jigar Tucker Referrals: Jigar Tucker MD [Primary Care Provider] - Activity Restrictions/Additional Instructions: Please keep a blood pressure log. Please follow-up with your primary care doctor. If your blood pressure is above 160 systolic you may take an additional 12.5 mg of her hydrochlorothiazide tablets once a day. Print Language: Uzbek Disposition Disposition: Home, Self Care Discharge Date/Time: 11/16/23 22:28
--- NOTE | 2023-11-16 22:17 | EKG12_ITS ---
Test Reason : HTN Blood Pressure : / mmHG Vent. Rate : 077 BPM Atrial Rate : 000 BPM P-R Int : 000 ms QRS Dur : 086 ms QT Int : 398 ms P-R-T Axes : 000 163 087 degrees QTc Int : 450 ms Sinus rhythm Right axis deviation Nonspecific T wave abnormality Abnormal ECG Assume no lead reversal Confirmed by ZACH CAMARA, JOCELINE ([id number]), news videotape editor MASSIEL FABIAN ([id number]) on 11/17/2023 2:33:43 PM Referred By: TRINI Confirmed By:JOCELINE SERRANO MD
[2023-11-16 22:23] VITALS: BP 148/79
[2023-11-16 22:27] VITALS: BP 147/68; PULSE 82; RESP 16; TEMP 36.6; O2SAT 99
== END 2023-11-16 22:28 | disposition home or self-care (01) ==
PROVIDERS: Emergency Provider Emergency Medicine; PCP Internal Medicine; Visit Provider Emergency Medicine
DX: I10 Essential (primary) hypertension (principal); K21.9 Gastro-esophageal reflux disease without esophagitis; E03.9 Hypothyroidism, unspecified; Z79.890 Hormone replacement therapy; Z79.899 Other long term (current) drug therapy; R23.2 Flushing
CPT/HCPCS: 71046; 80048; 84443; 85025; 93005; 96360; 99283; J7030; A4216

== ENCOUNTER → 2024-02-02 | Outpatient (CLI) | payer MEDICARE, SELFPAY ==
[2024-02-02 12:22] LABS: Hemoglobin 14.5 g/dL (12.0-15.0); Mean Corp Hgb Conc 33.7 g/dL (32-36); Mean Corpuscular Hgb 31.7 pg (27.0-32.0); Mean Corpuscular Volume 94.1 fL (81-99); Mean Platelet Vol. 11.1 fl (6.2-12.0); Platelet Count 233 K/mm3 (150-450); RBC Distribution Width CV 12.6 % (11.6-14.6); RBC Distribution Width SD 43.5 fl (35.1-43.9); Red Blood Count 4.57 M/mm3 (4.2-5.4)
[2024-02-02 12:36] LABS: Anion Gap 4 (5-15); BUN 11 mg/dL (7-18); BUN/Creat Ratio 12.4 RATIO (10-20); Calcium,Total 9.4 mg/dL (8.5-10.1); Chloride 108 mmol/L (98-107); Creatinine, Serum 0.89 mg/dL (0.55-1.02); EST Glomerular Filtration Rate 68 mL/min (>60); Est Glom Filt Rate - Afr Amer 82 mL/min (>60); Glucose 108 mg/dL (74-106); Potassium 3.7 mmol/L (3.5-5.1); Sodium Level 140 mmol/L (136-145)
== END | disposition home or self-care (01) ==
LOC: BIMLAB 11:03
PROVIDERS: Nurse Practitioner; PCP Internal Medicine; Referring Provider Internal Medicine; Visit Provider Internal Medicine
DX: I10 Essential (primary) hypertension (principal)
CPT/HCPCS: 36415; 80048; 84443; 85027

== ENCOUNTER → 2024-06-16 | Outpatient (CLI) | payer MEDICARE, OTHER, SELFPAY ==
[2024-06-16 12:23] LABS: Absolute Lymphocyte Count 1.76 X10^3/uL (0.83-4.51); Basophil# 0.08 X10^3/uL; Basophil% 1.2 % (0-1); Eosinophil# 0.19 X10^3/uL; Eosinophils% 2.9 % (0-5); Hemoglobin 14.4 g/dL (12.0-15.0); Lymphocyte # 1.76 X10^3/ul (0.83-4.51); Mean Corp Hgb Conc 34.3 g/dL (32-36); Mean Corpuscular Hgb 31.6 pg (27.0-32.0); Mean Corpuscular Volume 92.3 fL (81-99); Mean Platelet Vol. 10.2 fl (6.2-12.0); Monocyte# 0.45 X10^3/uL; Monocyte% 6.9 % (0-10); NRBC Flagged by Analyzer 0 % (0-5); Neutrophil # 4.01 X10^3/uL (2.7-7.7); Neutrophil % 61.7 % (47-70); Platelet Count 270 K/mm3 (150-450); RBC Distribution Width CV 12.6 % (11.6-14.6); Red Blood Count 4.55 M/mm3 (4.2-5.4); White Blood Count 6.5 K/mm3 (4.4-11.0)
[2024-06-16 13:07] LABS: ALB/GLOB Ratio 1.2 RATIO (0.9-2.4); AST(SGOT) 48 U/L (<=31); Alanine Aminotransfer ALT/SGPT 50 U/L (<=34); Alkaline Phosphatase 83 U/L (35-104); Anion Gap 11 (5-15); BUN 14 mg/dL (4-19); BUN/Creat Ratio 20.2 RATIO (10-20); Calcium,Total 9.7 mg/dL (7.6-11.0); Carbon Dioxide 23.6 mmol/L (21.0-32.0); Chloride 106 mmol/L (98-108); Cholesterol 167 mg/dL (<=200); Creatinine, Serum 0.68 mg/dL (0.70-1.20); EST Glomerular Filtration Rate 96 (>60); Globulin 3.2 g/dL (2.2-4.2); Glucose 126 mg/dL (70-99); High Density Lipoprotein 45 mg/dL; Low Density Lipoprotein Calc. 97 mg/dL; Potassium 4.3 mmol/L (3.3-5.1); Protein, Total 7.2 g/dL (5.9-8.4); Sodium Level 141 mmol/L (133-145); Total Bilirubin 0.42 mg/dL (0.00-1.30); Triglycerides 130 mg/dL; Very Low Density Lipoprotein 26 mg/dL (5-40); cholesterol:hdl ratio screen 3.75
[2024-06-16 13:42] LABS: Thyroid Stim Hormone (TSH) 0.139 uIU/mL (0.300-4.200); Vitamin D,25 Hydroxy 95.3 ng/mL (30-100)
[2024-06-16 14:18] LABS: Microalbumin,Random Urine < 12.0 mg/L (NO RANGE EST.); Microalbumin:Creatinine Ratio UNABLE TO CALCULATE mg/g CRE
== END | disposition home or self-care (01) ==
LOC: BIMLAB 10:52
PROVIDERS: PCP Internal Medicine; Referring Provider Internal Medicine; Visit Provider Internal Medicine
DX: I10 Essential (primary) hypertension (principal); E55.9 Vitamin D deficiency, unspecified; E03.9 Hypothyroidism, unspecified; R73.03 Prediabetes
CPT/HCPCS: 36415; 80053; 80061; 82043; 82306; 82570; 84443; 85025

== ENCOUNTER → 2024-08-26 | Outpatient (CLI) | payer MEDICARE, OTHER, SELFPAY | END | disposition home or self-care (01) | LOC: BIMLAB 12:30 | PROVIDERS: PCP Internal Medicine; Referring Provider Internal Medicine; Visit Provider Internal Medicine | DX: E03.9 Hypothyroidism, unspecified (principal) | CPT/HCPCS: 36415; 84443 ==

== ENCOUNTER → 2024-09-23 | Outpatient (CLI) | payer MEDICARE, OTHER, SELFPAY ==
[2024-09-23 12:29] LABS: Absolute Lymphocyte Count 1.89 X10^3/uL (0.83-4.51); Absolute Neutrophil Count 4.8 X10^3/uL (2.0-7.7); Basophil# 0.11 X10^3/uL; Basophil% 1.4 % (0-1); Eosinophils% 2.6 % (0-5); Hematocrit 41.9 % (37-47); Hemoglobin 14.2 g/dL (12.0-15.0); Lymphocyte # 1.89 X10^3/ul (0.83-4.51); Lymphocyte % 24.7 % (19-41); Mean Corp Hgb Conc 33.9 g/dL (32-36); Mean Corpuscular Hgb 31.8 pg (27.0-32.0); Mean Corpuscular Volume 93.7 fL (81-99); Mean Platelet Vol. 10.7 fl (6.2-12.0); Monocyte# 0.67 X10^3/uL; Monocyte% 8.7 % (0-10); NRBC Flagged by Analyzer 0 % (0-5); Neutrophil # 4.76 X10^3/uL (2.7-7.7); Neutrophil % 62.2 % (47-70); Platelet Count 236 K/mm3 (150-450); RBC Distribution Width CV 12.7 % (11.6-14.6); RBC Distribution Width SD 43.5 fl (35.1-43.9); Red Blood Count 4.47 M/mm3 (4.2-5.4); White Blood Count 7.7 K/mm3 (4.4-11.0)
[2024-09-23 13:13] LABS: ALB/GLOB Ratio 1.4 RATIO (0.9-2.4); AST(SGOT) 34 U/L (<=31); Alanine Aminotransfer ALT/SGPT 34 U/L (<=34); Albumin, Serum 3.9 g/dL (3.4-4.8); Alkaline Phosphatase 85 U/L (35-104); Anion Gap 11 (5-15); BUN 15 mg/dL (4-19); Calcium,Total 9.4 mg/dL (7.6-11.0); Carbon Dioxide 23.7 mmol/L (21.0-32.0); Chloride 106 mmol/L (98-108); Creatinine, Serum 0.81 mg/dL (0.70-1.20); EST Glomerular Filtration Rate 81 (>60); Globulin 2.9 g/dL (2.2-4.2); Glucose 146 mg/dL (70-99); Potassium 4.4 mmol/L (3.3-5.1); Protein, Total 6.8 g/dL (5.9-8.4); Sodium Level 141 mmol/L (133-145); Total Bilirubin 0.41 mg/dL (0.00-1.30)
== END | disposition home or self-care (01) ==
LOC: BIMLAB 09:26
PROVIDERS: PCP Internal Medicine; Referring Provider Internal Medicine; Visit Provider Internal Medicine
DX: I10 Essential (primary) hypertension (principal)
CPT/HCPCS: 36415; 80053; 85025

== ENCOUNTER 2024-11-30 12:47 | Day surgery (SDC) | payer MEDICARE, OTHER, SELFPAY ==
--- NOTE | 2024-11-25 14:40 | PAT.ANE_ITS ---
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 When Was Last Pacemaker Check QUESTION #4 FULL TEXT: You/Your Family Experience fever (hyperthermia) with Anesthesia Last Oral Intake Last Oral intake: Last Oral Intake NPO since Meds taken in AM with sips of water? Meds patient instructed to take am of surgery PONV PONV - loan officer assistant: PONV - loan officer assistant Female Yes 11/25/24 14:21 HX of Motion Sickness No 11/25/24 14:21 HX of N/V After Surgery No 11/25/24 14:21 Non-Smoker Yes 11/25/24 14:21 Duration of Surgery greater No 11/25/24 14:21 than 60 minutes Number of Risk Factors 2 11/25/24 14:21 PONV Score Moderate Risk 11/25/24 14:21 Height & Weight Height & Weight: Anesthesia: Height & Weight Height 5 ft 3 in 09/22/24 14:35 Respiratory Assessment Respiratory Assessment - loan officer assistant: Respiratory Tract Infection Hx - loan officer assistant Hx Respiratory Tract Infection No 11/25/24 14:21 STOP Sleep Apnea STOP Sleep Apnea - loan officer assistant: STOP Sleep Apnea - loan officer assistant Hx Hypertension Yes: CONTROLLED WITH MED 11/25/24 14:21 Hx Sleep Apnea No 11/25/24 14:21 CPAP BIPAP Do you snore loudly (louder Yes 11/25/24 14:21 than talking or can be heard Do you often feel tired/ Yes 11/25/24 14:21 fatigued/ sleepy during daytime? Has anyone observed you stop No 11/25/24 14:21 breathing during sleep? STOP Results Positive 11/25/24 14:21 QUESTION #5 FULL TEXT : Do you snore loudly (louder than talking or can be heard through closed doors)? Tobacco Use History Tobacco Use History - loan officer assistant: Tobacco Use History - loan officer assistant Tobacco Use Smoking Status Never smoker 11/25/24 14:21 Hx Tobacco Use No 11/25/24 14:21 Years Smoking Packs Smoked per Day Smoking Cessation Date was within the last 15 years Hx Smoking Cessation Date Hx Smoking Cessation Counseling Hematologic Medial History Hematologic Hx - loan officer assistant: Hematologic Medical Hx - product safety professional Hx of Blood Transfusion No 11/25/24 14:21 Hx of Transfusion in last 3 No 11/25/24 14:21 Months Date of Last Transfusion (if within last 3 months) Ever experience any problems No 11/25/24 14:21 with transfusion(s)? Specify any problems Hx of Preganancy in last 3 No 11/25/24 14:21 Months Nurse Filling Out Transfusion DSCHRIBER 11/25/24 14:21 & Questions: Date: 11/25/24 11/25/24 14:21 Time: 14:23 11/25/24 14:21 Patient unable to answer at this time (ie. confused, unrespo /Reproduction History /Reproductive History - loan officer assistant: /Reproductive Hx- loan officer assistant Hx Now No 11/25/24 14:21 Gestational Age (in weeks): EDC: Hx Hx Para Hx Section SAB No 11/25/24 14:21 [facility] Medical History (Updated 11/25/24 @ 14:29 by Alysha Carlos) Diabetes Wears glasses Thyroid disease Anemia Fatty liver High cholesterol Easy bruising Restless legs Syncope Gastric reflux Shortness of breath on exertion Leg cramps History of edema Family history of hemochromatosis Vitamin D deficiency Colon cancer screening Hypertension Home Medications ?Medication ?Instructions ?Recorded ?Last Taken ?Type cholecalciferol (vitamin D3) 50 2,000 unit PO DAILY Unknown History mcg (2,000 unit) tablet loratadine 10 mg tablet (Claritin) 10 mg PO DAILY 07/06 12/28 Unknown History hydrochlorothiazide 12.5 mg tablet 12.5 mg PO QAM PRN edema 02/04/24 Unknown History levothyroxine 112 mcg tablet 112 mcg PO DAILY #90 TABL ETS 11/23/24 Unknown Rx enalapril maleate 10 mg tablet 10 mg PO QHS 11/25/24 U nknown History enalapril maleate 20 mg tablet 20 mg PO QHS 11/25/24 U nknown History magnesium glycinate 100 mg (as 200 mg PO DAILY 5 Unknown History glycinate) tablet omeprazole 20 mg tablet,delayed 20 mg PO QHS 11/25/24 Unknown History release Allergy/AdvReac Type Severity Reaction Status Date / Time No Known Allergies Allergy Verified 11/25/24 14:16 Family History Father Heart disease Hypertension Kidney stones Diabetes High cholesterol Mother Hypertension Grandmother Hypothyroid Son Hemochromatosis Surgical History (Updated 11/25/24 @ 14:29 by Alysha Carlos) History of repair of retinal tear by laser photocoagulation H/O colonoscopy History of D&C Social History Smoking Status: Never smoker alcohol intake: never substance use type: does not use caffeine: Yes what type of physical activity do you participate in: walking seatbelt use: always do you feel safe at home: Yes additional social history: - [employer] NOW Audit: Pertinent Findings Pertinent Findings EKG Perinent findings: EKG performed 11/16/2023: Sinus rhythm, right axis deviation, nonspecific T wave abnormality, abnormal EKG. Recommendation Anesthesia Recommendation Anesthesia recommendation: OPTIMIZED for anesthesia
[2024-11-30] VITALS (7 sets, daily range): BP systolic 109–138; BP diastolic 68–86; PULSE 87–107; RESP 14–16; TEMP 36.2–37.2; O2SAT 96–98; BMI 37.0
[2024-11-30] MEDS: Lactated Ringers 1,000 ML 15 ML IV (13:13)
--- NOTE | 2024-11-30 13:42 | PCM.PRE.AN2 ---
ASA Classification* ASA Classification ASA Classification: 2 Assessment & Plan Anesthesia* Anesthesia Assessment Anesthesia Assessment: Discussed sedation and/or anesthesia options, risks, benefits, and alternatives with patient/parents/legal guardian/POA. Questions invited. The patient/parents/legal guardian/POA seems to understand and agrees to proceed with anesthesia plan. Reviewed the physical assessment, medical history, allergy history and patient home medications list prior to surgery/procedure/anesthetic and documented any changes. Performed airway and anesthesia risk assessments. Anesthesia Type Anesthesia Type: MAC (Patient has dextrocardia. Will need to flip her EKG leads.) History Source History Obtained from:: Patient and Chart Anesthesia Focused Assessment* Temperature: 99.0 F Pulse Rate: 107 Blood Pressure: 138/86 Respiratory Rate: 16 Pulse Ox: 98 Oxygen Delivery Method: Room Air Airway Assessment Mouth opens: >3 cm Mallampati Score: II Teeth Condition: Missing (Patient has several missing teeth. Rest are tight.) Neck Range of motion (ROM): Limited ROM (Somewhat Decreased) Labs Anesthesia Preop lab: CBC WBC 7.7 K/mm3 (4.4-11.0) 09/23/24 09:09/23/24 RBC 4.47 M/mm3 (4.2-5.4) 09/23/24 09:09/23/24 Hgb 14.2 g/dL (12.0-15.0) 09/23/24 09:26 09/23/24 Hct 41.9 % (37-47) 09/23/24 09:26 09/23/24 Plt Count 236 K/mm3 (150-450) 09/23/24 09:26 09/23/24 CHEMISTRY Potassium 4.4 mmol/L (3.3-5.1) 09/23/24 09:26 09/23/24 Sodium 141 mmol/L (133-145) 09/23/24 09:26 09/23/24 Magnesium 2.3 mg/dL (1.6-2.6) 06/27/23 11:03 06/27/23 BUN 15 mg/dL (4-19) 09/23/24 09:26 09/23/24 Creatinine 0.81 mg/dL (0.70-1.20) 09/23/24 09:26 09/23/24 Glucose 146 mg/dL (70-99) H 09/23/24 09:26 09/23/24 TSH 2.650 uIU/mL (0.300-4.200) 08/26/24 12:30 08/26/24 COAG Urine Test Negative Negative 06/04/12 16:28 06/04/12 Pre-Assessment Diagnosis/Proposed Procedure Planned Operative Procedure(s): EGD/CSCOPE Anesthesia History Anesthesia History - hospitality intern: Anesthesia History - hospitality intern Hx Hospitalization No 11/25/24 14:21 Any Problems With Anesthesia No 11/25/24 14:21 Cholinesterase deficiency No 11/25/24 14:21 You/Your Family Experience No 11/25/24 14:21 fever (hyperthermia) with Relationship Recent Exposure to Contagious No 11/30/24 13:04 Disease Does patient have nerve No 11/25/24 14:21 stimulator Patient instructed to have device shut off --Does patient have Pacemaker No 11/30/24 13:04 or ICD? When Was Last Pacemaker Check QUESTION #4 FULL TEXT: You/Your Family Experience fever (hyperthermia) with Anesthesia Last Oral Intake Last Oral intake: Last Oral Intake NPO since 09:00 11/30/24 13:04 Meds taken in AM with sips of Yes 11/30/24 13:04 water? Meds patient instructed to see medlist 11/30/24 13:04 take am of surgery Any additional information?: Yes NPO since: 09:30 (Patient finished her prep at 9:30 AM.) Meds taken in AM with sips of water?: Yes PONV PONV - hospitality intern: PONV - hospitality intern Female Yes 11/25/24 14:21 HX of Motion Sickness No 11/25/24 14:21 HX of N/V After Surgery No 11/25/24 14:21 Non-Smoker Yes 11/25/24 14:21 Duration of Surgery greater No 11/25/24 14:21 than 60 minutes Number of Risk Factors 2 11/25/24 14:21 PONV Score Moderate Risk 11/25/24 14:21 Height & Weight Height & Weight: Anesthesia: Height & Weight Height 5 ft 4 in 11/30/24 13:04 Weight: 98 kg 11/30/24 13:04 Body Mass Index (BMI) 37.0 11/30/24 13:04 Respiratory Assessment Respiratory Assessment - hospitality intern: Respiratory Tract Infection Hx - hospitality intern Hx Respiratory Tract Infection No 11/25/24 14:21 STOP Sleep Apnea STOP Sleep Apnea - hospitality intern: STOP Sleep Apnea - hospitality intern Hx Hypertension Yes: CONTROLLED WITH MED 11/25/24 14:21 Hx Sleep Apnea No 11/25/24 14:21 CPAP BIPAP Do you snore loudly (louder Yes 11/25/24 14:21 than talking or can be heard Do you often feel tired/ Yes 11/25/24 14:21 fatigued/ sleepy during daytime? Has anyone observed you stop No 11/25/24 14:21 breathing during sleep? STOP Results Positive 11/25/24 14:21 QUESTION #5 FULL TEXT : Do you snore loudly (louder than talking or can be heard through closed doors)? 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 Specify any problems Hx of Preganancy in last 3 No 11/25/24 14:21 Months Nurse Filling Out Transfusion DSCHRIBER 11/25/24 14:21 & Questions: Date: 11/25/24 11/25/24 14:21 Time: 14:23 11/25/24 14:21 Patient unable to answer at this time (ie. confused, unrespo /Reproduction History /Reproductive History - hospitality intern: /Reproductive Hx- hospitality intern Hx Now No 11/25/24 14:21 Gestational Age (in weeks): EDC: Hx Hx Para Hx Section SAB No 11/25/24 14:21 Active Medications Active Medications: Current Medications Generic Name Dose Route Start Last Admin Trade Name Freq PRN Reason Stop Dose Admin Lactated Ringer's 1,000 mls @ 15 mls/hr 11/30/24 13:00 11/30/24 13:13 IV 15 mls/hr .Q48H DIONISIO Administration PFSH Medical History Diabetes Wears glasses Thyroid disease Anemia Fatty liver High cholesterol Easy bruising Restless legs Syncope Gastric reflux Shortness of breath on exertion Leg cramps History of edema Family history of hemochromatosis Vitamin D deficiency Colon cancer screening Hypertension Home Medications ?Medication ?Instructions ?Recorded ?Last Taken ?Type cholecalciferol (vitamin D3) 50 2,000 unit PO DAILY 05/10/19 Unknown History mcg (2,000 unit) tablet loratadine 10 mg tablet (Claritin) 10 mg PO DAILY 07/24/22 11/30/24 History hydrochlorothiazide 12.5 mg tablet 12.5 mg PO QAM PRN edema 02/04/24 Unknown History levothyroxine 112 mcg tablet 112 mcg PO DAILY #90 TABLETS 11/23/24 Unknown Rx enalapril maleate 10 mg tablet 10 mg PO QHS 11/25/24 11/30/24 03:00 History enalapril maleate 20 mg tablet 20 mg PO QHS 11/25/24 11/30/24 03:00 History magnesium glycinate 100 mg (as 200 mg PO DAILY 11/25/24 Unknown History glycinate) tablet omeprazole 20 mg tablet,delayed 20 mg PO QHS 11/25/24 Unknown History release Allergy/AdvReac Type Severity Reaction Status Date / Time No Known Allergies Allergy Verified 11/30/24 13:03 Family History Father Heart disease Hypertension Kidney stones Diabetes High cholesterol Mother Hypertension Grandmother Hypothyroid Son Hemochromatosis Surgical History History of repair of retinal tear by laser photocoagulation H/O colonoscopy History of D&C Social History Smoking Status: Never smoker alcohol intake: never substance use type: does not use caffeine: Yes what type of physical activity do you participate in: walking seatbelt use: always do you feel safe at home: Yes additional social history: - [employer] Review of Systems (Anesthesia) ROS Narrative System reviewed and no additional complaints, except as documented. Physical Exam Cardio Cardio Narrative: Patient has dextrocardia. Will need to flip EKG leads to get a proper reading.
--- NOTE | 2024-11-30 14:00 | EGD_PTH ---
PATIENT: RENA VIRK LOC: EN U#:[id number] AGE/SX: 64/F ROOM: RE11/30/[address]: Dr. Randy Dewitt DO : 1960 BED: DIS: 11/30/2024 SPEC #: [id number] RECD: 11/30/24 18:16 STATUS: CRISTHIAN ANABELA #: [id number] GERA: 11/30/24 14:[address]: Randy Dewitt DEPT: SURGICAL PATHOLOGY RECD BY: Satya Martin ENTERED: 12/01/24 11:02 SP TYPE: EGD BIOPSY SADAF DR: Dr. Jigar Tucker MD Tissues: A - Gastric mucous membrane B - Duodenum, NOS C - Esophagus, NOS D - Cecum, NOS E - Sigmoid colon biopsy Procedures: Immunohistochemical Stains Surgery Specimen Level IV HEADER OPERATION: Colonoscopy with polypectomy and biopsy, EGD with biopsy PRE-OP DIAGNOSIS: Colon cancer screening, GERD TISSUE SUBMITTED: A- Gastric body biopsy, B- Duodenum biopsy, C- Distal esophagus biopsy, D- Cecum polyp, E- Sigmoid polyp biopsy MICROSCOPIC DIAGNOSIS A. Gastric body, biopsy: Antral and oxyntic mucosa with chronic gastritis. IHC negative for H. pylori organisms. B. Duodenum, biopsy: Oz gland hyperplasia. Negative for increased intraepithelial lymphocytes. C. Distal esophagus, biopsy: Squamous mucosa with reactive changes Columnar mucosa negative for goblet cell metaplasia. D. Cecum, polyp, biopsy: Tubulovillous adenoma, multiple fragments. Fragments of skeletal muscle, suggestive of foodstuff. Clinical correlation recommended. E. Sigmoid colon, polyp, biopsy: Tubular adenoma. MICROSCOPIC DESCRIPTION Slides are reviewed. All matched controls reacted appropriately. These tests were developed and their performance characteristics determined by [facility]. They may not have been cleared or approved by the U.S. Food and Drug Administration. The FDA has determined that such clearance or approval is not necessary. The above immunohistochemical/dualISH markers are viewed by the Pathologist. GROSS DESCRIPTION A. Received in fixative is one container labeled with the patient's name and designated Gastric body biopsy. The specimen consists of two irregular fragments of light murry soft tissue, each measuring 0.5 cm. The specimen is totally submitted in one cassette. B. Received in fixative is one container labeled with the patient's name and designated Duodenum biopsy. The specimen consists of two irregular fragments of light murry soft tissue, each measuring 0.5 cm. The specimen is totally submitted in one cassette. C. Received in fixative is one container labeled with the patient's name and designated Distal esophagus biopsy. The specimen consists of one irregular fragment of light murry soft tissue that measures 0.4 cm. The specimen is totally submitted in one cassette. D. Received in fixative is one container labeled with the patient's name and designated Cecum polyp. The specimen consists of multiple irregular fragments of light murry soft tissue that in aggregate measure 1.5 x 0.8 x 0.1 cm. The specimen is totally submitted in one cassette. E. Received in fixative is one container labeled with the patient's name and designated Sigmoid polyp biopsy. The specimen consists of one irregular fragment of light murry soft tissue that measures 0.3 cm. The specimen is totally submitted in one cassette. [place] 12/01/2024 CPT:42516w7,63255
--- NOTE | 2024-11-30 14:24 | PCM.HP.STD ---
HPI - General General Date of Admission: 11/30/24 Date of Service: 11/30/24 Chief Complaint: Heartburn and screening colonoscopy HPI Narrative GIOVANNA VIRK, is a 64 F who presents for an evaluation of upper and lower GI tract due to history of heartburn and needing a screening colonoscopy. *BGI established 10.25.24 pt reports on September 18 she was straining with a bowel movement and then had some bleeding. pt reports bleeding resolved the next day, has not had any bleeding since. Pt reports HB at night, but states that she takes indigestion pills that control her symptoms. Pt reports last colonoscopy was about 12 years ago. [facility] Medical History Diabetes Wears glasses Thyroid disease Anemia Fatty liver High cholesterol Easy bruising Restless legs Syncope Gastric reflux Shortness of breath on exertion Leg cramps History of edema Family history of hemochromatosis Vitamin D deficiency Colon cancer screening Hypertension Home Medications ?Medication ?Instructions ?Recorded ?Last Taken ?Type cholecalciferol (vitamin D3) 50 2,000 unit PO DAILY 05/10/19 Unknown History mcg (2,000 unit) tablet loratadine 10 mg tablet (Claritin) 10 mg PO DAILY 07/24/22 11/30/24 History hydrochlorothiazide 12.5 mg tablet 12.5 mg PO QAM PRN edema 02/04/24 Unknown History levothyroxine 112 mcg tablet 112 mcg PO DAILY #90 TABLETS 11/23/24 Unknown Rx enalapril maleate 10 mg tablet 10 mg PO QHS 11/25/24 11/30/24 03:00 History enalapril maleate 20 mg tablet 20 mg PO QHS 11/25/24 11/30/24 03:00 History magnesium glycinate 100 mg (as 200 mg PO DAILY 11/25/24 Unknown History glycinate) tablet omeprazole 20 mg tablet,delayed 20 mg PO QHS 11/25/24 Unknown History release Allergy/AdvReac Type Severity Reaction Status Date / Time No Known Allergies Allergy Verified 11/30/24 13:03 Family History Father Heart disease Hypertension Kidney stones Diabetes High cholesterol Mother Hypertension Grandmother Hypothyroid Son Hemochromatosis Surgical History History of repair of retinal tear by laser photocoagulation H/O colonoscopy History of D&C Social History Smoking Status: Never smoker alcohol intake: never substance use type: does not use caffeine: Yes what type of physical activity do you participate in: walking seatbelt use: always do you feel safe at home: Yes additional social history: - [employer] ROS Constitutional Constitutional: Denies fatigue, fever(s), poor appetite, weight gain or weight loss Gastrointestinal Gastrointestinal: Denies belching, bloating, change in bowel habits, change in stool character, chewing difficulty, coffee ground emesis, constipation, cramping, diarrhea, dyspepsia, dysphagia, early satiety, excessive flatus, fecal incontinence, heartburn, hematemesis, hematochezia, hemorrhoids, loose stools, melena, nausea, odynophagia, rectal bleeding, tenesmus, vomiting or weight changes Vital Signs Vital Signs Vital Signs: 11/30/24 13:04 11/30/24 13:04 11/30/24 13:52 Temperature 99.0 F 99.0 F Temperature Source Temporal Pulse Rate 107 H 107 H Respiratory Rate 16 16 Respiratory Pattern Normal Blood Pressure 138/86 H 138/86 H Blood Pressure Mean 103 Blood Pressure Source Monitor Blood Pressure Position Semi-Fowlers Blood Pressure Location Left Arm Pulse Ox 98 98 Oxygen Delivery Method Room Air Room Air Weight Weight: 216 lb 0.848 oz Body Mass Index (BMI) 37.0 Physical Exam Const alert, oriented x3, no apparent distress and healthy appearing General Appearance: cooperative GI normal to inspection, nondistended, normoactive bowel sounds, soft to palpation, non-tender and non-distended Percussion: normal to percussion Rectal Exam: deferred Assessment & Plan Assessment/Plan (1) Colon cancer screening: (2) GERD (gastroesophageal reflux disease): PLAN: Assessment and Plan Assessment and Plan (1) GI bleed: Status: Acute (2) GERD (gastroesophageal reflux disease): Status: Chronic Plan: Giovanna is a very pleasant 64-year-old with a family history of hemochromatosis, personal history of borderline type 2 diabetes not on any medicines who presents for a screening colonoscopy and evaluation of GERD. Approximately a month ago she developed cramping and abdominal pain followed by diarrhea and lower GI bleeding. 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 It was suspected that she was bleeding secondary to hemorrhoidal disease. She does not know she has any history of diverticular disease. Her weight has been stable. She has not had any change in bowel habits over the last 6 months. She does not take any blood thinners. She also has been experiencing some issues with reflux disease at night. She is having to take to as she calls it, indigestion pills per day. She has never had endoscopic evaluation. Assessment: - Need for screening colonoscopy - Lower GI bleed possibly secondary to diverticular disease, ischemic colitis or hemorrhoidal disease - Refractory gastroesophageal reflux disease Plan: - Patient will undergo an upper and lower endoscopy to evaluate upper GI tract. Will not make any medication changes at this time. She was explained alternatives, risk and benefits include not withstanding bleeding, infection, sepsis, perforation, need for emergent . She will have an ASA of 3. Medications: New sod sulf-pot chloride-mag sulf 1.479-0.188- 0.225 gram (Sutab) PO PER PKG DIR 24 tabs 0RF ondansetron HCl with colonoscopy prep 4 mg PO Q8H 4 tabs 0RF simethicone (Gas Relief (simethicone)) with colonoscopy prep
[2024-11-30] MEDS: Lactated Ringers 500 ML IV (14:37)
--- NOTE | 2024-11-30 15:07 | PCM.POST.ANE ---
Anesthesia: Postop Eval I Current Vital Signs Temperature: 97.2 F Pulse Rate: 92 Blood Pressure: 109/68 Respiratory Rate: 16 Pulse Ox: 96 Oxygen Delivery Method: Room Air Assessment Airway patent: Yes Spontaneous unlabored respirations: Yes Mental status: Awake nausea: No Vomiting: No Anesthesia Complication: No Fluid Hydration Crystalloid volume administer (ml): 500 Total IV fluid infused: 500 Progress Note Anesthesia document: Postop Eval 1 completed: Yes
--- NOTE | 2024-11-30 15:12 | OP.PROVAT_ITS ---
11/30/2024 Jigar Tucker MD [address] [place] [address] [place] [address] Re : Upper GI endoscopy procedure for Giovanna Sanchez Dear Dr. Tucker This procedure was performed on Saturday, November 30, 2024. My impressions and recommendations are as follows: Impressions : - Z-line irregular, 40 cm from the incisors. Biopsied. - Erythematous mucosa in the gastric body. Biopsied. - Erythematous duodenopathy. Biopsied. Recommendations : - Discharge patient to home. - Resume previous diet. - Continue present medications. - Await pathology results. My findings are described in the full procedure note, which is enclosed. If I can be of further assistance, please feel free to contact me at . Sincerely, Randy Dewitt, 11/30/2024 3:11:51 PM This report has been signed electronically.
--- NOTE | 2024-11-30 15:12 | OP.EGD_ITS ---
Patient Name: Giovanna Sanchez Procedure Date: 11/30/2024 2:30 PM Date of : 1960 Age: 64 Procedure: Upper GI endoscopy Indications: Epigastric abdominal pain, Dyspepsia, Indigestion, Heartburn, Suspected esophageal reflux Providers: Randy Dewitt DO Referring MD: Jigar Tucker MD Medicines: Monitored Anesthesia Care Patient Profile: This is a 64 year old female. Refer to note in patient chart for documentation of history and physical. Patient has symptoms of acute epigastric abdominal pain, chronic heartburn and chronic nausea. Complications: No immediate complications. Procedure: Pre-Anesthesia Assessment: - Prior to the procedure, a History and Physical was performed, and patient medications and allergies were reviewed. The patient is competent. The risks and benefits of the procedure and the sedation options and risks were discussed with the patient. All questions were answered and informed consent was obtained. Patient identification and proposed procedure were verified by the physician in the pre-procedure area. Mental Status Examination: alert and oriented. Airway Examination: normal oropharyngeal airway and neck mobility. Respiratory Examination: clear to auscultation. CV Examination: normal. Prophylactic Antibiotics: The patient does not require prophylactic antibiotics. Prior Anticoagulants: The patient has taken no anticoagulant or antiplatelet agents. ASA Grade Assessment: II - A patient with mild systemic disease. After reviewing the risks and benefits, the patient was deemed in satisfactory condition to undergo the procedure. The anesthesia plan was to use monitored anesthesia care (MAC). Immediately prior to administration of medications, the patient was re-assessed for adequacy to receive sedatives. The heart rate, respiratory rate, oxygen saturations, blood pressure, adequacy of pulmonary ventilation, and response to care were monitored throughout the procedure. The physical status of the patient was re-assessed after the procedure. After obtaining informed consent, the endoscope was passed under direct vision. Throughout the procedure, the patient's blood pressure, pulse, and oxygen saturations were monitored continuously. The pediatric colonoscope was introduced through the mouth, and advanced to the third part of the duodenum. Small bowel enteroscopy was deemed necessary. The upper GI endoscopy was accomplished without difficulty. The patient tolerated the procedure well. Scope In: 2:40:55 PM Scope Out: 2:45:09 PM Total Procedure Duration Time 0 hours 4 minutes 14 seconds Findings: The Z-line was irregular and was found 40 cm from the incisors. Biopsies were taken with a cold forceps for histology. Verification of patient identification for the specimen was done. Estimated blood loss was minimal. Diffuse mildly erythematous mucosa without bleeding was found in the gastric body. Biopsies were taken with a cold forceps for histology. Biopsies were taken with a cold forceps for Helicobacter pylori testing. Verification of patient identification for the specimen was done. Estimated blood loss was minimal. Patchy mildly erythematous mucosa without active bleeding and with no stigmata of bleeding was found in the duodenal bulb. Biopsies were taken with a cold forceps for histology. Verification of patient identification for the specimen was done. Estimated blood loss was minimal. Impression: - Z-line irregular, 40 cm from the incisors. Biopsied. - Erythematous mucosa in the gastric body. Biopsied. - Erythematous duodenopathy. Biopsied. Recommendation: - Discharge patient to home. - Resume previous diet. - Continue present medications. - Await pathology results. Procedure Code(s): --- Professional --- 23147, Small intestinal endoscopy, enteroscopy beyond second portion of duodenum, not including ileum; with biopsy, single or multiple CPT copyright 2021 [employer]. All rights reserved. The codes documented in this report are preliminary and upon language therapist review may be revised to meet current compliance requirements. Randy Dewitt DO 11/30/2024 3:11:51 PM This report has been signed electronically. Number of Addenda: 0 Note Initiated On: 11/30/2024 2:30 PM
--- NOTE | 2024-11-30 15:16 | OP.COLON_ITS ---
Patient Name: Giovanna Sanchez Procedure Date: 11/30/2024 2:45 PM Date of : 1960 Age: 64 Procedure: Colonoscopy Indications: Screening for colorectal malignant neoplasm Providers: Radny Dewitt DO Referring MD: Jigar Tucker MD Medicines: Monitored Anesthesia Care Patient Profile: This is a 64 year old female. Refer to note in patient chart for documentation of history and physical. Patient has symptoms of acute epigastric abdominal pain, chronic heartburn and chronic nausea. Last Colonoscopy: none. The patient's first colonoscopy is today. Complications: No immediate complications. Procedure: Pre-Anesthesia Assessment: - Prior to the procedure, a History and Physical was performed, and patient medications and allergies were reviewed. The patient is competent. The risks and benefits of the procedure and the sedation options and risks were discussed with the patient. All questions were answered and informed consent was obtained. Patient identification and proposed procedure were verified by the physician in the pre-procedure area. Mental Status Examination: alert and oriented. Airway Examination: normal oropharyngeal airway and neck mobility. Respiratory Examination: clear to auscultation. CV Examination: normal. Prophylactic Antibiotics: The patient does not require prophylactic antibiotics. Prior Anticoagulants: The patient has taken no anticoagulant or antiplatelet agents. ASA Grade Assessment: II - A patient with mild systemic disease. After reviewing the risks and benefits, the patient was deemed in satisfactory condition to undergo the procedure. The anesthesia plan was to use monitored anesthesia care (MAC). Immediately prior to administration of medications, the patient was re-assessed for adequacy to receive sedatives. The heart rate, respiratory rate, oxygen saturations, blood pressure, adequacy of pulmonary ventilation, and response to care were monitored throughout the procedure. The physical status of the patient was re-assessed after the procedure. After I obtained informed consent, the scope was passed under direct vision. Throughout the procedure, the patient's blood pressure, pulse, and oxygen saturations were monitored continuously. The pediatric colonoscope was introduced through the anus and advanced to the cecum, identified by appendiceal orifice and ileocecal valve. The colonoscopy was performed without difficulty. The patient tolerated the procedure well. The quality of the bowel preparation was adequate. The ileocecal valve, appendiceal orifice, and rectum were photographed. Scope In: 2:47:31 PM Scope Withdrawal Time 0 hours 7 minutes 27 seconds Scope Out: 3:00:06 PM Total Procedure Duration Time 0 hours 12 minutes 35 seconds Findings: The perianal and digital rectal examinations were normal. A 10 mm polyp was found in the cecum. The polyp was sessile. The polyp was removed with a hot snare. Resection and retrieval were complete. Verification of patient identification for the specimen was done. Estimated blood loss: none. A 7 mm polyp was found in the sigmoid colon. The polyp was sessile. The polyp was removed with a cold biopsy forceps. Resection and retrieval were complete. Verification of patient identification for the specimen was done. Many small and large-mouthed diverticula were found in the sigmoid colon, descending colon, splenic flexure, transverse colon, hepatic flexure and ascending colon. Impression: - One 10 mm polyp in the cecum, removed with a hot snare. Resected and retrieved. - One 7 mm polyp in the sigmoid colon, removed with a cold biopsy forceps. Resected and retrieved. - Diverticulosis in the sigmoid colon, in the descending colon, at the splenic flexure, in the transverse colon, at the hepatic flexure and in the ascending colon. Recommendation: - Await pathology results. - Repeat colonoscopy in 3 years for surveillance. - Continue present medications. Procedure Code(s): --- Professional --- 73412, Colonoscopy, flexible; with removal of tumor(s), polyp(s), or other lesion(s) by snare technique [id number], 59, Colonoscopy, flexible; with biopsy, single or multiple CPT copyright 2021 [employer]. All rights reserved. The codes documented in this report are preliminary and upon student assistant review may be revised to meet current compliance requirements. Randy Dewitt DO 11/30/2024 3:16:13 PM This report has been signed electronically. Number of Addenda: 0 Note Initiated On: 11/30/2024 2:45 PM
--- NOTE | 2024-11-30 15:16 | OP.PROVAT_ITS ---
11/30/2024 Jigar Tucker MD [address] [place] [address] [place] [address] Re : Colonoscopy procedure for Giovanna Sanchez Dear Dr. Tucker This procedure was performed on Saturday, November 30, 2024. My impressions and recommendations are as follows: Impressions : - One 10 mm polyp in the cecum, removed with a hot snare. Resected and retrieved. - One 7 mm polyp in the sigmoid colon, removed with a cold biopsy forceps. Resected and retrieved. - Diverticulosis in the sigmoid colon, in the descending colon, at the splenic flexure, in the transverse colon, at the hepatic flexure and in the ascending colon. Recommendations : - Await pathology results. - Repeat colonoscopy in 3 years for surveillance. - Continue present medications. My findings are described in the full procedure note, which is enclosed. If I can be of further assistance, please feel free to contact me at . Sincerely, Randy Dewitt, 11/30/2024 3:16:13 PM This report has been signed electronically.
== END 2024-11-30 15:47 | disposition home or self-care (01) ==
LOC: EN 12:50 → AC 12:51
PROVIDERS: PCP Internal Medicine; Referring Provider Internal Medicine; Visit Provider Internal Medicine Gastroenterology
PROC: 0DJD8ZZ Inspection of Lower Intestinal Tract, Via Natural or Artificial Opening Endoscopic (ICD-10-PCS; CPT 45378; principal; 2024-11-30 13:55)
DX: Z12.11 Encounter for screening for malignant neoplasm of colon (principal); K29.50 Unspecified chronic gastritis without bleeding; D12.0 Benign neoplasm of cecum; D12.5 Benign neoplasm of sigmoid colon; K57.30 Diverticulosis of large intestine without perforation or abscess without bleeding; K31.89 Other diseases of stomach and duodenum; K21.9 Gastro-esophageal reflux disease without esophagitis; I10 Essential (primary) hypertension; E78.00 Pure hypercholesterolemia, unspecified; Q24.0 Dextrocardia; Z79.899 Other long term (current) drug therapy
CPT/HCPCS: 45385; 45380; 43239; 88305; 88342; J2405